=== PATIENT | male | born 1960 | race Two or more races ===

== ENCOUNTER 2016-07-17 18:51 | Emergency (ER) | payer OTHER ==
[~2016-07-17] VITALS: Ht 188 cm; Wt 68.0 kg
[2016-07-17] MEDS ORDERED: ONDANSETRON ODT 4 MG TAB.RAPDIS SL ONE (19:30)
[2016-07-17] MEDS ORDERED: HYDROCODONE/APAP 10-325 MG TABLET PO ONE (19:30)
[2016-07-17] MEDS ORDERED: ONDANSETRON ODT 4 MG TAB.RAPDIS ONE (19:43)
[2016-07-17] MEDS ORDERED: HYDROCODONE/APAP 10-325 MG TABLET ONE (19:44)
--- NOTE | 2016-07-17 21:30 | NUR ---
Patient discharged to home in stable conditon. Written and verbal after care instructions given. Patient verbalizes understanding of instructions.
== END 2016-07-17 21:30 | disposition home or self-care (01) ==
LOC: ER 18:57
DX: R51 Headache (principal); M54.2 Cervicalgia; M54.9 Dorsalgia, unspecified; M25.512 Pain in left shoulder; V89.2XXA Person injured in unspecified motor-vehicle accident, traffic, initial encounter; Y93.89 Activity, other specified; Y99.8 Other external cause status; Y92.89 Other specified places as the place of occurrence of the external cause
CPT/HCPCS: 70450; 72072; 72125; 73030; A4663; Q0162